=== PATIENT | female | born 1995 | race Caucasian/White ===

== ENCOUNTER 2020-08-21 14:54 | Inpatient (IN) | payer MEDICAID ==
[~2020-08-21] VITALS: Ht 175.3 cm; Wt 100.0 kg
[2020-08-21] MEDS ORDERED: SODIUM CHLORIDE FLUSH 10ML SYR IVF ONE (15:00)
[2020-08-21] MEDS ORDERED: MIDAZOLAM HCL 50 MG in SODIUM CHLORIDE 0.9% 40 ML IV PRN ×2 (15:00→15:30)
[2020-08-21] MEDS ORDERED: VANCOMYCIN PER PHARMACY MC PRN (15:00)
--- NOTE | 2020-08-21 15:12 | NUR ---
PT TRANSFERRED VIA [facility] FROM [facility], PT ARRIVED INTUBATED WITH 7.5 ET TUBE 23CM AT THE LIP. ARRIVED ON VERSED DRIP RUNNING AT 40MG/HR.
[2020-08-21] MEDS ORDERED: PROPOFOL 100 ML IV ONE (15:26)
[2020-08-21] MEDS ORDERED: PLEASE ENTER ALLERGIES MC SCH (15:30)
[2020-08-21] MEDS ORDERED: PLEASE ENTER HEIGHT AND WEIGHT MC SCH (15:30)
--- NOTE | 2020-08-21 15:32 | NUR ---
PT BECAME RESTLESS, PER DR. JIMENEZ AT BEDSIDE START PROPOFOL DRIP.
[2020-08-21] MEDS: PROPOFOL 100 ML IV PRN ×2 (15:48→21:10)
[2020-08-21 15:58] LABS: TROPONIN I < 0.015 ng/mL (0.000-0.045)
[2020-08-21] MEDS ORDERED: LABETALOL 5MG/ML, 20ML IVPush PRN (16:00)
[2020-08-21] MEDS ORDERED: ONDANSETRON 2MG/ML, 2ML IVPush PRN (16:00)
[2020-08-21] MEDS: SODIUM CHLORIDE 0.9% 1,000 ML IV SCH (16:00)
[2020-08-21] MEDS ORDERED: ACETAMINOPHEN 325 MG TABLET PO PRN (16:00)
[2020-08-21] MEDS ORDERED: morphine SULFATE 10 MG/ML, 1ML IVPush PRN (16:00)
[2020-08-21] MEDS ORDERED: BISACODYL 10 MG SUPP PR PRN (16:00)
[2020-08-21] MEDS ORDERED: OXYcodone IR 5MG TABLET PO PRN (16:00)
[2020-08-21] MEDS ORDERED: POLYETHYLENE GLYCOL 17 GM PACKET PO PRN (16:00)
[2020-08-21] MEDS ORDERED: LORazepam 2 MG/ML, 1ML IVPush PRN (16:00)
--- NOTE | 2020-08-21 16:09 | NUR ---
PT BECAME RESTLESS, INCREASED PROPOFOL PER PROTOCOL.
--- NOTE | 2020-08-21 16:22 | NUR ---
REPORT TO MEHRAN LOPEZ.
[2020-08-21 16:34] LABS: SALICYLATE LEVEL < 1.7 mg/dL (2.8-20.0)
[2020-08-21] MEDS ORDERED: PROPOFOL 100 ML IV PRN (17:00)
[2020-08-21] MEDS ORDERED: LIDOCAINE-MPF 1%, 2ML ENDO PRN (17:00)
[2020-08-21] MEDS ORDERED: PHARMACY MAY ADJ FOR RENAL FX MC SCH (17:00)
[2020-08-21] MEDS: ENOXAPARIN 40 MG/0.4 ML SQ SCH (18:20)
[2020-08-21] MEDS: CLINDAMYCIN PMX 600MG/50ML 50 ML IV SCH (18:20)
[2020-08-21] MEDS: MIDAZOLAM HCL 50 MG in SODIUM CHLORIDE 0.9% 40 ML IV PRN ×2 (18:21→23:05)
[2020-08-21 19:21] VITALS: BP 114/77
[2020-08-21] MEDS: FAMOTIDINE 20 MG/2 ML IVPush SCH (20:59)
[2020-08-21 23:49] LABS: MICROSCOPIC INDICATED
[2020-08-22] MEDS: CLINDAMYCIN PMX 600MG/50ML 50 ML IV SCH ×3 (00:36→16:42)
[2020-08-22] MEDS: PROPOFOL 100 ML IV PRN ×2 (01:50→07:17)
[2020-08-22 04:38] LABS: ALBUMIN 2.8 g/dL (3.4-5.0); ANION GAP 5 mmol/L (5-15); CALCIUM 7.8 mg/dL (8.5-10.1); CHLORIDE 115 mmol/L (98-107)
[2020-08-22 04:42] LABS: BASOPHILS % (AUTO) 0 % (0-1); EOSINOPHILS % (AUTO) 0 % (1-7); LYMPHOCYTES % (AUTO) 14 % (22-44); MEAN CORPUSCULAR HEMOGLOBIN 26.5 pg (27.0-34.8); MEAN CORPUSCULAR HGB CONC 32.2 g/dL (32.4-35.8); MEAN PLATELET VOLUME 8.1 fL (7.4-10.4); MONOCYTES % (AUTO) 6 % (2-9); NEUTROPHILS % (AUTO) 80 % (42-75); PLATELET COUNT 305 x10^3/uL (130-400); RED BLOOD COUNT 4.77 x10^6/uL (3.82-5.3); RED CELL DISTRIBUTION WIDTH 16.1 % (9.6-15.2)
[2020-08-22 04:43] LABS: ALANINE AMINOTRANSFERASE 29 U/L (12-78); ALKALINE PHOSPHATASE 65 U/L (45-117); BILIRUBIN,TOTAL 0.4 mg/dL (0.2-1.0); TOTAL PROTEIN 6.7 g/dL (6.4-8.2)
[2020-08-22] MEDS: MIDAZOLAM HCL 50 MG in SODIUM CHLORIDE 0.9% 40 ML IV PRN (05:12)
[2020-08-22] MEDS ORDERED: POTASSIUM CHLORIDE 10% 40 MEQ/30 ML UDC PO ONE (07:30)
[2020-08-22] MEDS: SODIUM CHLORIDE 0.9% 1,000 ML IV SCH (08:00)
[2020-08-22] MEDS: SENNA/DOCUSATE TABLET PO SCH (08:39)
[2020-08-22] MEDS: FAMOTIDINE 20 MG/2 ML IVPush SCH ×2 (08:39→20:55)
[2020-08-22] MEDS: ENOXAPARIN 40 MG/0.4 ML SQ SCH (16:42)
[2020-08-23] MEDS: CLINDAMYCIN PMX 600MG/50ML 50 ML IV SCH ×2 (00:22→07:48)
[2020-08-23] MEDS: SODIUM CHLORIDE 0.9% 1,000 ML IV SCH (03:52)
[2020-08-23 06:21] LABS: BASOPHILS % (AUTO) 1 % (0-1); EOSINOPHILS % (AUTO) 4 % (1-7); LYMPHOCYTES % (AUTO) 23 % (22-44); MEAN CORPUSCULAR HEMOGLOBIN 26.8 pg (27.0-34.8); MEAN CORPUSCULAR HGB CONC 33.1 g/dL (32.4-35.8); MEAN PLATELET VOLUME 7.8 fL (7.4-10.4); MONOCYTES % (AUTO) 8 % (2-9); NEUTROPHILS % (AUTO) 65 % (42-75); PLATELET COUNT 311 x10^3/uL (130-400); RED BLOOD COUNT 4.86 x10^6/uL (3.82-5.3)
[2020-08-23 06:33] LABS: ANION GAP 5 mmol/L (5-15); CALCIUM 8.5 mg/dL (8.5-10.1); CHLORIDE 111 mmol/L (98-107); CREATININE 0.57 mg/dL (0.55-1.02)
[2020-08-23] MEDS ORDERED: POTASSIUM CHLORIDE 20 MEQ TAB.ER.PRT PO ONE (07:30)
[2020-08-23] MEDS: SENNA/DOCUSATE TABLET PO SCH (07:47)
[2020-08-23] MEDS ORDERED: CLIN300C9 PO (08:53)
== END 2020-08-23 14:42 | disposition home or self-care (01) | DRG 137 ==
LOC: ED 16:09 → EDIP 16:20 → CCU 16:44 → 3N 08-23 06:31
PROVIDERS: ADMIT Internal Medicine; ATTEND Internal Medicine
PROC: 5A1935Z Respiratory Ventilation, Less than 24 Consecutive Hours (ICD-10-PCS; principal; 2020-08-21)
PROC: 0BH17EZ Insertion of Endotracheal Airway into Trachea, Via Natural or Artificial Opening (ICD-10-PCS; 2020-08-21)
PROC: 0T9B70Z Drainage of Bladder with Drainage Device, Via Natural or Artificial Opening (ICD-10-PCS; 2020-08-21)
DX: J69.0 Pneumonitis due to inhalation of food and vomit (principal); J96.01 Acute respiratory failure with hypoxia; Z99.11 Dependence on respirator [ventilator] status; G93.41 Metabolic encephalopathy; E87.0 Hyperosmolality and hypernatremia; F10.129 Alcohol abuse with intoxication, unspecified; E66.9 Obesity, unspecified; R73.9 Hyperglycemia, unspecified; Y90.6 Blood alcohol level of 120-199 mg/100 ml; S81.812A Laceration without foreign body, left lower leg, initial encounter; X58.XXXA Exposure to other specified factors, initial encounter; Y93.89 Activity, other specified; Y92.89 Other specified places as the place of occurrence of the external cause; Y99.8 Other external cause status
CPT/HCPCS: 36415; 36600; 71045; 80048; 80053; 80299; 80329; 81001; 82803; 83036; 83605; 83735; 84478; 84484; 85025; 87040; 87070; 87081; 87086; 87205; 93005; 94002; 94003; 94150; 94690; 99285; G0378; J1650; J2250; J2704; G0480; J7030